=== PATIENT | male | born 1985 | race Caucasian/White ===

== ENCOUNTER 2017-06-01 08:29 | Emergency (ER) | payer SELFPAY ==
[~2017-06-01] VITALS: Ht 182.9 cm; Wt 103.5 kg
[2017-06-01 08:33] VITALS: BP 120/65; PULSE 75; RESP 15; TEMP 98.2; O2SAT 97
--- NOTE | 2017-06-01 08:49 | PD ---
HPI Chief Complaint: Cold / Flu Symptoms Time Seen by Provider: 08:37 Travel History International Travel<30 days: No Contact w/Intl Traveler<30days: No Traveled to known affect area: No History of Present Illness HPI C/O PROD COUGH, GREEN SPUTUM, OCC FEVER, NO SICK CONTACTS, ONSET OVER LAST 2 DAYS, NOT IMPROVING SO DECIDED TO GET CHECKED OUT. PFSH Social History Tobacco Use: No Allergies-Medications (Allergen,Severity, Reaction): Coded Allergies: No Known Allergies (Unverified , 06/01/17) Reported Meds & Prescriptions Reported Meds & Active Scripts Active No Active Prescriptions or Reported Medications Review of Systems Respiratory: Positive: Cough Physical Exam Narrative GENERAL: SKIN: Warm and dry. HEAD: Atraumatic. Normocephalic. NO TTP OVER SINUS EYES: Pupils equal and round. No scleral icterus. No injection or drainage. ENT: No nasal bleeding or discharge. Mucous membranes pink and moist. NECK: Trachea midline. No JVD. CARDIOVASCULAR: Regular rate and rhythm. RESPIRATORY: No accessory muscle use. NO RETRACTIONS NOTED, BUT PRESENT MILD GENERALIZED WHEEZES THORUGHOUT LUNG TRAN WITHOUT DECREASED IN TIDAL VOLUME GASTROINTESTINAL: Abdomen soft, non-tender, nondistended. Hepatic and splenic margins not palpable. MUSCULOSKELETAL: Extremities without clubbing, cyanosis, or edema. No obvious deformities. NEUROLOGICAL: Awake and alert. No obvious cranial nerve deficits. Motor grossly within normal limits. Five out of 5 muscle strength in the arms and legs. Normal speech. PSYCHIATRIC: Appropriate mood and affect; insight and judgment normal. Data Data Last Documented VS Vital Signs Date Time Temp Pulse Resp B/P Pulse Ox O2 Delivery O2 Flow Rate FiO2 06/01/17 08:52 18 98 Room Air 06/01/17 08:33 98.2 75 120/65 Orders Influenzae A/B Antigen (06/01/17 08:38) Albuterol-Ipratropium Neb (Duoneb Neb) (06/01/17 09:15) MDM Medical Decision Making Medical Screen Exam Complete: Yes Emergency Medical Condition: Yes Medical Record Reviewed: Yes Differential Diagnosis FLU V BACTERIAL BRONCHITIS, V PNA Narrative Course PATIENT RESPONDED WELL TO NEBS, LUNGS ARE NOW CLEAR ON REEVAL...FLU NEGATIVE, RR /PULSE OX WNL THROUGHOUT OBSERVATION PERIOD. STABLE FOR D/C HOME Diagnosis Primary Impression: Bronchospasm with bronchitis, acute Patient Instructions: Acute Bronchitis (ED), Bronchospasm (ED), General Instructions Scripts Methylprednisolone Dosepak (Medrol Dosepak)4 Mg Dspk4 Mg PO DIRECTED #1 DSPK Per Pharmacist direction Prov:Didier Massey MD 06/01/17 Azithromycin (Zithromax Z-Ahsan)250 Mg Shsa785 Mg PO DIRECTED #1 DSPK 500 MG (2 tabs) day 1, then 1 tab days 2-5. Prov:Didier Massey MD 06/01/17 Albuterol 6.7 GM Inh (Proventil Hfa 6.7 GM Inh)90 Mcg/Act Aer1 Puff INH Q4H PRN (SHORTNESS OF BREATH) #1 INHALER Prov:Didier Massey MD 06/01/17 Disposition: 01 DISCHARGE HOME Condition: Stable Didier Massey MD Jun 01, 2017 08:49
[2017-06-01] MEDS ORDERED: RESP: ALBUTEROL 2.5 MG/IPRATROPIUM 0.5 MG NEB (SCH) INH ONE (09:15)
[2017-06-01] MEDS ORDERED: ZITHTAB PO (09:17)
[2017-06-01] MEDS ORDERED: ALBU6.7H INH (09:17)
[2017-06-01] MEDS ORDERED: MEDR4PAK PO (09:17)
== END 2017-06-01 09:42 | disposition home or self-care (01) ==
LOC: PHED 08:29
DX: J20.9 Acute bronchitis, unspecified (principal)
CPT/HCPCS: 87804; 94664; 99284